=== PATIENT | male | born 1945 | race Caucasian/White ===

== ENCOUNTER 2018-03-15 21:16 | Emergency (ER) | payer MEDICARE, MEDICAID ==
[~2018-03-15] VITALS: Ht 167.6 cm; Wt 56.8 kg
[2018-03-15] MEDS ORDERED: ZOLP10TA7 PO (21:46)
[2018-03-15 22:51] LABS: APPEARANCE,URINE CLEAR (CLEAR); BILIRUBIN,URINE NEGATIVE (NEGATIVE); GLUCOSE, URINE (UA) NEGATIVE (NEGATIVE); KETONES,URINE NEGATIVE (NEGATIVE); LEUKOCYTE ESTERASE ,URINE NEGATIVE (NEGATIVE); NITRATE,URINE NEGATIVE (NEGATIVE); OCCULT BLOOD,URINE SMALL (NEGATIVE); PROTEIN,URINE NEGATIVE (NEGATIVE); UROBILINOGEN,URINE 0.2 mg/dL (<=1.0)
[2018-03-15 22:58] LABS: AMPHET/METH SCREEN,URINE NEGATIVE (NEGATIVE); BARBITURATE SCREEN, URINE NEGATIVE (NEGATIVE); BENZODIAZEPINES SCREEN,URINE NEGATIVE (NEGATIVE); CANNABINOID SCREEN,URINE NEGATIVE (NEGATIVE); COCAINE SCREEN,URINE NEGATIVE (NEGATIVE); METHADONE SCREEN, URINE NEGATIVE (NEGATIVE); OPIATE SCREEN,URINE NEGATIVE (NEGATIVE); PHENCYCLIDINE SCREEN,URINE NEGATIVE (NEGATIVE)
[2018-03-15 23:01] LABS: BASOPHILS % (AUTO) 0.6 % (0.0-2.0); EOSINOPHILS % (AUTO) 4.2 % (1.0-6.0); HEMATOCRIT 43.9 % (41-53); HEMOGLOBIN 14.9 g/dL (13.5-17.5); LYMPHOCYTES # (AUTO) 1.9 K/uL (1.0-4.8); LYMPHOCYTES % (AUTO) 24.5 % (22.0-44.0); MEAN CORPUSCULAR HEMOGLOBIN 30.4 pg (26.0-34.0); MEAN CORPUSCULAR HGB CONC 34.1 G/dL (31.0-37.0); MEAN CORPUSCULAR VOLUME 89 fL (80-100); MONOCYTES # (AUTO) 0.7 K/uL (0.1-1.0); MONOCYTES % (AUTO) 9.4 % (2.0-9.0); NEUTROPHILS # (AUTO) 4.6 K/uL (1.8-7.7); NEUTROPHILS % (AUTO) 61.3 % (40.0-70.0); PLATELET COUNT (AUTO) 220 K/uL (150-450); RED BLOOD CELL COUNT(AUTO) 4.92 MIL/uL (4.50-5.90); RED CELL DISTRIBUTION WIDTH 13.2 % (11.5-14.5)
[2018-03-15 23:02] LABS: BACTERIA,URINE Rare /HPF (None Seen); SQUAMOUS EPITHELIAL CELL,UR Few /LPF (None Seen); WBC,URINE 0-2 /HPF (0-5)
[2018-03-15 23:04] LABS: ANION GAP 7 mmol/L (8-16); CALCIUM, TOTAL 9.4 mg/dL (8.8-10.5); CARBON DIOXIDE 28 mmol/L (22-29); CHLORIDE 101 mmol/L (98-107); GLUCOSE,RANDOM 140 mg/dL (70-110); POTASSIUM 3.7 mmol/L (3.5-5.1); SODIUM SERUM 136 mmol/L (136-145); UREA NITROGEN, BLOOD 15 mg/dL (7-18)
[2018-03-15 23:08] LABS: GLOMERULAR FILTR. RATE CALC > 60 mL/min (>60)
[2018-03-15 23:10] LABS: ALANINE AMINOTRANSFERASE 31 U/L (12-78); ALBUMIN 3.6 g/dL (3.4-5.0); ALKALINE PHOSPHATASE 88 U/L (46-116); ASPARTATE AMINOTRANSFERASE 19 U/L (15-37); BILIRUBIN,TOTAL 0.3 mg/dL (0.1-1.0); TOTAL PROTEIN, SERUM 7.2 g/dL (6.4-8.2)
[2018-03-16] MEDS ORDERED: SODIUM CHLORIDE 0.9% 1,000 ML IV ONE
[2018-03-16] MEDS ORDERED: HydrALAZINE HCL 20 MG/ML VIAL IVP ONE (00:15)
[2018-03-16 01:05] VITALS: BP 153/94
== END 2018-03-16 02:02 | disposition home or self-care (01) ==
LOC: EMS 21:19
DX: F32.9 Major depressive disorder, single episode, unspecified (principal); I10 Essential (primary) hypertension; F17.210 Nicotine dependence, cigarettes, uncomplicated; Z79.899 Other long term (current) drug therapy
CPT/HCPCS: 36415; 70450; 71045; 80053; 80307; 81001; 84484; 85025; 93005; 96374; 99284; G0480; J0360; J7030

== ENCOUNTER 2021-01-21 12:00 | Inpatient (IN) | payer MEDICARE, OTHER ==
[~2021-01-21] VITALS: Ht 170.2 cm; Wt 56.1 kg
[~2021-01-21 12:00] MED LIST: ZOLP10TA8 PO
[2021-01-21 12:16] LABS: BASOPHILS % (AUTO) 0.8 % (0.0-2.0); EOSINOPHILS % (AUTO) 5.8 % (1.0-6.0); HEMATOCRIT 46.9 % (41-53); HEMOGLOBIN 15.3 g/dL (13.5-17.5); LYMPHOCYTES # (AUTO) 1.5 K/uL (1.0-4.8); LYMPHOCYTES % (AUTO) 20.7 % (22.0-44.0); MEAN CORPUSCULAR HEMOGLOBIN 29.6 pg (26.0-34.0); MEAN CORPUSCULAR HGB CONC 32.5 G/dL (31.0-37.0); MEAN CORPUSCULAR VOLUME 91 fL (80-100); MONOCYTES # (AUTO) 0.5 K/uL (0.1-1.0); MONOCYTES % (AUTO) 6.3 % (2.0-9.0); NEUTROPHILS % (AUTO) 66.4 % (40.0-70.0); PLATELET COUNT (AUTO) 169 K/uL (150-450); RED BLOOD CELL COUNT(AUTO) 5.16 MIL/uL (4.50-5.90)
[2021-01-21 12:42] LABS: INR 0.9 (0.9-1.1)
[2021-01-21 12:44] LABS: ANION GAP 11 mmol/L (8-16); CALCIUM, TOTAL 9.1 mg/dL (8.8-10.5); CARBON DIOXIDE 26 mmol/L (22-29); CHLORIDE 104 mmol/L (98-107); CREATININE 0.83 mg/dL (0.60-1.30); GLUCOSE,RANDOM 129 mg/dL (70-110); POTASSIUM 4.2 mmol/L (3.5-5.1); SODIUM SERUM 141 mmol/L (136-145); UREA NITROGEN, BLOOD 17 mg/dL (7-18)
[2021-01-21] MEDS ORDERED: ASPIRIN 325 MG TABLET PO ONE (12:45)
[2021-01-21 12:46] LABS: B-TYPE NATRIURETIC PEPTIDE 82 pg/mL (0-100)
[2021-01-21 12:50] LABS: ALANINE AMINOTRANSFERASE 46 U/L (12-78); ALBUMIN 4.4 g/dL (3.4-5.0); ALKALINE PHOSPHATASE 102 U/L (46-116); ASPARTATE AMINOTRANSFERASE 39 U/L (15-37); BILIRUBIN,TOTAL 0.9 mg/dL (0.1-1.0); TOTAL PROTEIN, SERUM 7.4 g/dL (6.4-8.2)
[2021-01-21 12:51] LABS: GLOMERULAR FILTR. RATE CALC > 60 mL/min (>60)
[2021-01-21] MEDS ORDERED: OxyCODONE HCL/ACETAMINOPHEN 5-325 MG TABLET PO PRN (13:00)
[2021-01-21] MEDS ORDERED: ONDANSETRON HCL 4 MG/2 ML VIAL IVP PRN (13:00)
[2021-01-21] MEDS ORDERED: ACETAMINOPHEN 325 MG TABLET PO PRN (13:00)
[2021-01-21] MEDS: ATORVASTATIN CALCIUM 40 MG TABLET PO SCH (13:10)
[2021-01-21] MEDS: AmLODIPine BESYLATE 5 MG TABLET PO SCH (13:10)
[2021-01-21 13:45] LABS: COVID AG,FIA SOURCE NASOPHARYNGEAL
[2021-01-21 18:30] VITALS: BP 148/82
[2021-01-21 19:10] VITALS: BP 163/86
[2021-01-21] MEDS: HEPARIN SODIUM,PORCINE 5,000 UNITS/ML VIAL SQ SCH (20:19)
[2021-01-21] MEDS: DOCUSATE SODIUM 100 MG CAPSULE PO SCH (20:19)
[2021-01-22 00:02] VITALS: BP 150/75
[2021-01-22] MEDS: MELATONIN 3 MG TABLET PO PRN ×2 (00:47→21:20)
[2021-01-22 04:37] VITALS: BP 157/79
[2021-01-22 07:05] LABS: CHOL/HDL RATIO 3.4 (4.2-7.3)
[2021-01-22 07:30] VITALS: BP 123/76
[2021-01-22 08:33] LABS: APPEARANCE,URINE CLEAR (CLEAR); BILIRUBIN,URINE NEGATIVE (NEGATIVE); GLUCOSE, URINE (UA) NEGATIVE (NEGATIVE); KETONES,URINE NEGATIVE (NEGATIVE); LEUKOCYTE ESTERASE ,URINE NEGATIVE (NEGATIVE); NITRATE,URINE NEGATIVE (NEGATIVE); OCCULT BLOOD,URINE NEGATIVE (NEGATIVE); PH,URINE 6.5 (5.0-8.0); PROTEIN,URINE NEGATIVE (NEGATIVE); UROBILINOGEN,URINE 0.2 mg/dL (<=1.0)
[2021-01-22 08:35] LABS: BACTERIA,URINE None Seen /HPF (None Seen); RBC,URINE None Seen /HPF (0-2); WBC,URINE None Seen /HPF (0-5)
[2021-01-22 08:37] LABS: AMPHET/METH SCREEN,URINE NEGATIVE (NEGATIVE); BARBITURATE SCREEN, URINE NEGATIVE (NEGATIVE); BENZODIAZEPINES SCREEN,URINE NEGATIVE (NEGATIVE); CANNABINOID SCREEN,URINE NEGATIVE (NEGATIVE); COCAINE SCREEN,URINE NEGATIVE (NEGATIVE); METHADONE SCREEN, URINE NEGATIVE (NEGATIVE); OPIATE SCREEN,URINE NEGATIVE (NEGATIVE)
[2021-01-22 08:43] LABS: PHENCYCLIDINE SCREEN,URINE NEGATIVE (NEGATIVE)
[2021-01-22] MEDS: DOCUSATE SODIUM 100 MG CAPSULE PO SCH ×2 (09:20→20:09)
[2021-01-22] MEDS: FAMOTIDINE 20 MG TABLET PO SCH (09:20)
[2021-01-22] MEDS: ASPIRIN 325 MG TABLET PO SCH (09:20)
[2021-01-22] MEDS: AmLODIPine BESYLATE 5 MG TABLET PO SCH (09:21)
[2021-01-22] MEDS: HEPARIN SODIUM,PORCINE 5,000 UNITS/ML VIAL SQ SCH ×2 (09:21→20:09)
[2021-01-22] MEDS: ATORVASTATIN CALCIUM 40 MG TABLET PO SCH (09:21)
[2021-01-22 11:30] VITALS: BP 102/76
[2021-01-22 15:40] VITALS: BP 137/97
[2021-01-22 20:43] VITALS: BP 154/87
[2021-01-23] VITALS (7 sets, daily range): BP systolic 123–162; BP diastolic 69–86
[2021-01-23] MEDS: HEPARIN SODIUM,PORCINE 5,000 UNITS/ML VIAL SQ SCH ×2 (08:33→20:15)
[2021-01-23] MEDS: DOCUSATE SODIUM 100 MG CAPSULE PO SCH ×2 (08:33→20:38)
[2021-01-23] MEDS: ATORVASTATIN CALCIUM 40 MG TABLET PO SCH (08:33)
[2021-01-23] MEDS: FAMOTIDINE 20 MG TABLET PO SCH (08:33)
[2021-01-23] MEDS: ASPIRIN 325 MG TABLET PO SCH (08:33)
[2021-01-23] MEDS: AmLODIPine BESYLATE 5 MG TABLET PO SCH (08:33)
[2021-01-23 11:57] LABS: BASOPHILS % (AUTO) 0.6 % (0.0-2.0); EOSINOPHILS % (AUTO) 2.8 % (1.0-6.0); HEMATOCRIT 45.8 % (41-53); HEMOGLOBIN 15.2 g/dL (13.5-17.5); LYMPHOCYTES # (AUTO) 1.5 K/uL (1.0-4.8); MEAN CORPUSCULAR HEMOGLOBIN 30.1 pg (26.0-34.0); MEAN CORPUSCULAR HGB CONC 33.1 G/dL (31.0-37.0); MEAN CORPUSCULAR VOLUME 91 fL (80-100); MONOCYTES # (AUTO) 0.6 K/uL (0.1-1.0); MONOCYTES % (AUTO) 8.9 % (2.0-9.0); NEUTROPHILS # (AUTO) 4.6 K/uL (1.8-7.7); NEUTROPHILS % (AUTO) 65.7 % (40.0-70.0); PLATELET COUNT (AUTO) 166 K/uL (150-450); RED BLOOD CELL COUNT(AUTO) 5.05 MIL/uL (4.50-5.90); RED CELL DISTRIBUTION WIDTH 14.3 % (11.5-14.5)
[2021-01-23 12:15] LABS: ANION GAP 7 mmol/L (8-16); CARBON DIOXIDE 26 mmol/L (22-29); CHLORIDE 104 mmol/L (98-107); GLUCOSE,RANDOM 104 mg/dL (70-110); POTASSIUM 4.6 mmol/L (3.5-5.1); SODIUM SERUM 137 mmol/L (136-145); UREA NITROGEN, BLOOD 16 mg/dL (7-18)
[2021-01-23 12:16] LABS: GLOMERULAR FILTR. RATE CALC > 60 mL/min (>60)
[2021-01-23] MEDS: MELATONIN 3 MG TABLET PO PRN (23:51)
[2021-01-24 04:15] VITALS: BP 156/81
[2021-01-24 07:36] VITALS: BP 153/91
[2021-01-24] MEDS: DOCUSATE SODIUM 100 MG CAPSULE PO SCH ×2 (08:46→20:23)
[2021-01-24] MEDS: ASPIRIN 325 MG TABLET PO SCH (08:46)
[2021-01-24] MEDS: AmLODIPine BESYLATE 5 MG TABLET PO SCH (08:47)
[2021-01-24] MEDS: FAMOTIDINE 20 MG TABLET PO SCH (08:47)
[2021-01-24] MEDS: HEPARIN SODIUM,PORCINE 5,000 UNITS/ML VIAL SQ SCH (08:47)
[2021-01-24] MEDS: ATORVASTATIN CALCIUM 40 MG TABLET PO SCH (08:47)
[2021-01-24 11:20] VITALS: BP 152/82
[2021-01-24 15:11] VITALS: BP 143/75
[2021-01-24 20:04] VITALS: BP 159/67
[2021-01-24] MEDS: MELATONIN 3 MG TABLET PO PRN (20:38)
[2021-01-25 00:02] VITALS: BP 153/68
[2021-01-25 06:10] VITALS: BP 155/73
[2021-01-25 07:45] VITALS: BP 137/74
[2021-01-25] MEDS ORDERED: ASPIRIN 325 MG TABLET PO SCH (09:00)
[2021-01-25] MEDS: CLOPIDOGREL BISULFATE 75 MG TABLET PO SCH (09:33)
[2021-01-25] MEDS: AmLODIPine BESYLATE 5 MG TABLET PO SCH (09:33)
[2021-01-25] MEDS: DOCUSATE SODIUM 100 MG CAPSULE PO SCH ×2 (09:33→23:14)
[2021-01-25] MEDS: ATORVASTATIN CALCIUM 40 MG TABLET PO SCH (09:33)
[2021-01-25] MEDS: FAMOTIDINE 20 MG TABLET PO SCH (09:33)
[2021-01-25 11:36] VITALS: BP 142/68
[2021-01-25 16:32] VITALS: BP 132/72
[2021-01-25 20:15] VITALS: BP 137/72
[2021-01-25] MEDS: MELATONIN 3 MG TABLET PO PRN (23:30)
[2021-01-26 00:03] VITALS: BP 162/72
[2021-01-26 07:27] VITALS: BP 148/76
[2021-01-26] MEDS: ATORVASTATIN CALCIUM 40 MG TABLET PO SCH (08:30)
[2021-01-26] MEDS: AmLODIPine BESYLATE 5 MG TABLET PO SCH (08:30)
[2021-01-26] MEDS: DOCUSATE SODIUM 100 MG CAPSULE PO SCH ×2 (08:30→23:52)
[2021-01-26] MEDS: CLOPIDOGREL BISULFATE 75 MG TABLET PO SCH (08:30)
[2021-01-26] MEDS: FAMOTIDINE 20 MG TABLET PO SCH (08:30)
[2021-01-26] MEDS: ASPIRIN 81 MG DR TABLET PO SCH (08:31)
[2021-01-26 11:48] VITALS: BP 136/65
[2021-01-26 16:01] VITALS: BP 142/74
[2021-01-26 20:25] VITALS: BP 136/91
[2021-01-26] MEDS: MELATONIN 3 MG TABLET PO PRN (23:52)
[2021-01-27 00:22] VITALS: BP 149/79
[2021-01-27 06:05] VITALS: BP 142/58
[2021-01-27 07:54] VITALS: BP 164/84
[2021-01-27] MEDS: ASPIRIN 81 MG DR TABLET PO SCH (08:03)
[2021-01-27] MEDS: AmLODIPine BESYLATE 5 MG TABLET PO SCH (08:03)
[2021-01-27] MEDS: FAMOTIDINE 20 MG TABLET PO SCH (08:03)
[2021-01-27] MEDS: DOCUSATE SODIUM 100 MG CAPSULE PO SCH (08:03)
[2021-01-27] MEDS: ATORVASTATIN CALCIUM 40 MG TABLET PO SCH (08:03)
[2021-01-27] MEDS: CLOPIDOGREL BISULFATE 75 MG TABLET PO SCH (08:04)
[2021-01-27 09:02] VITALS: BP 141/77
[2021-01-27 11:04] VITALS: BP 143/70
[2021-01-27] MEDS ORDERED: ASPI-1450 PO (14:53)
[2021-01-27] MEDS ORDERED: AMLO-257 PO (14:54)
[2021-01-27] MEDS ORDERED: ATOR40TA28 PO (14:54)
[2021-01-27] MEDS ORDERED: CLOP75TA60 PO (14:54)
[2021-01-27] MEDS ORDERED: FAMO20 PO (14:55)
[2021-01-27 15:09] VITALS: BP 157/78
== END 2021-01-27 17:50 | disposition home health service (06) | DRG 65 ==
LOC: EDUNIT# 12:00 → EMS 12:02 → EDBD 12:02 → 5S 17:25
PROVIDERS: ADMIT Internal Medicine; ATTEND Internal Medicine
DX: I63.9 Cerebral infarction, unspecified (principal); G81.91 Hemiplegia, unspecified affecting right dominant side; R64 Cachexia; Z68.1 Body mass index [BMI] 19.9 or less, adult; I10 Essential (primary) hypertension; J44.9 Chronic obstructive pulmonary disease, unspecified; F17.210 Nicotine dependence, cigarettes, uncomplicated; R29.702 NIHSS score 2; R47.01 Aphasia; Z20.822 Contact with and (suspected) exposure to COVID-19; Z79.899 Other long term (current) drug therapy; R29.810 Facial weakness; S43.004A Unspecified dislocation of right shoulder joint, initial encounter; X58.XXXA Exposure to other specified factors, initial encounter; Y93.89 Activity, other specified; Y92.89 Other specified places as the place of occurrence of the external cause; Y99.8 Other external cause status; R77.8 Other specified abnormalities of plasma proteins
CPT/HCPCS: 70496; 70551; 71045; 80048; 80053; 80061; 80307; 81001; 83880; 84484; 85025; 85610; 85730; 86850; 86900; 86901; 92507; 92610; 93005; 93306; 93880; 97112; 97116; 97163; 97167; 97530; 97535; 99291; G0480; J1644; 36415-L1; 36415-TC; 70450; 70450-TC